=== PATIENT | female | born 2000 | race African-American/Black ===

== ENCOUNTER 2018-04-22 13:09 | Emergency (ER) | payer SELFPAY ==
[~2018-04-22] VITALS: Ht 149.9 cm; Wt 46.4 kg
[2018-04-22 13:12] VITALS: BP 118/57; TEMP 98.3
[2018-04-22 14:06] LABS: COLLECTION METHOD CLEAN CATCH
[2018-04-22 14:19] LABS: MUCOUS Present /lpf; PH 6 (5-8); SQUAMOUS EPITHELIAL 0-2 /hpf; URINE APPEARANCE Clear; URINE BACTERIA None Seen /hpf; URINE BILIRUBIN Negative (NEGATIVE); URINE BLOOD Negative (NEGATIVE); URINE COLOR Yellow; URINE GLUCOSE Negative (NEGATIVE); URINE KETONE Negative (NEGATIVE); URINE LEUKOCYTE ESTERASE Negative (NEGATIVE); URINE NITRATE Negative (NEGATIVE); URINE PROTEIN(semi-quant) Negative (NEGATIVE); URINE RBC 0-2 /hpf; URINE UROBILINOGEN >=4.0 mg/dL (NEGATIVE)
[2018-04-22] MEDS ORDERED: DIFLUCAN150 MG PO (15:11)
[2018-04-22 15:26] VITALS: PULSE 71
== END 2018-04-22 15:27 | disposition home or self-care (01) ==
LOC: COL.ER 13:09
PROVIDERS: Nurse Practitioner
DX: N76.0 Acute vaginitis (principal); B37.3 Candidiasis of vulva and vagina; F12.90 Cannabis use, unspecified, uncomplicated